=== PATIENT | female | born 1990 | race Caucasian/White ===

== ENCOUNTER 2020-02-12 17:52 | Emergency (ER) | payer MEDICAID ==
[~2020-02-12] VITALS: Ht 152.4 cm; Wt 60.9 kg
[~2020-02-12 17:52] MED LIST: METH4TAB81 PO; TIZA4TAB11 PO
[2020-02-12 18:06] VITALS: BP 120/78
[2020-02-12] MEDS ORDERED: CITA20TA28 PO (18:36)
--- NOTE | 2020-02-12 18:38 | NUR ---
pt is 29 yo female c/o withdrawal sx, off of celexa x1 week, unable to get prescription refilled due to insurance problems, unable to get appt with PMD, would like medication refilled, c/o decreased appetite, insomnia, emotional. Has been on celexa for 8 years, has been evaluated by provider
== END 2020-02-12 18:51 | disposition home or self-care (01) ==
LOC: ER 17:52
DX: F32.9 Major depressive disorder, single episode, unspecified (principal); Z76.0 Encounter for issue of repeat prescription; Z79.899 Other long term (current) drug therapy
CPT/HCPCS: 99281